=== PATIENT | female | born 1960 | race Caucasian/White ===

== ENCOUNTER 2021-05-22 08:00 | Outpatient (CLI) | payer BC | END 2021-05-22 23:59 | disposition home or self-care (01) | LOC: LAB.N 08:00 | PROVIDERS: ATTEND Physician Assistant Medical | DX: J02.9 Acute pharyngitis, unspecified (principal); Z20.822 Contact with and (suspected) exposure to COVID-19 ==

== ENCOUNTER 2021-07-12 08:00 | Outpatient (CLI) | payer BC ==
--- NOTE | 2021-07-12 16:03 | XRAY Report ---
PROCEDURE: Foot 2 View BILAT INDICATIONS: BILATERAL HEEL PX TECHNIQUE: 2 views of the foot were acquired. COMPARISON: None FINDINGS: Bones: No fractures or dislocations. No suspicious bony lesions. Soft tissues: No tibiotalar joint effusion. Achilles tendon appears normal. Linear radiodensity is noted overlying the second proximal phalanx of the right foot. IMPRESSION: No visualized acute fracture or dislocation. However, occult injury cannot be excluded. Recommend kory rt interval imaging follow-up in 7-10 days as clinically indicated for additional evaluation. Reviewed by: Tara David MD on 07/12/2021 4:02 PM [facility] Approved by: Tara David MD on 07/12/2021 4:02 PM [facility] Station ID: [id number]
== END 2021-07-12 23:59 | disposition home or self-care (01) ==
LOC: DI.N 08:00
PROVIDERS: ATTEND Family Medicine
DX: M79.672 Pain in left foot (principal); M79.671 Pain in right foot

== ENCOUNTER 2022-12-18 10:34 | Emergency (ER) | payer BC ==
--- NOTE | 2022-12-18 12:33 | ED Physician Documentation ---
History of Present Illness - Stated complaint Stated Complaint: THROAT AND CHEST DISCOMFORT - Chief complaint Chief Complaint: Cardiac - Additonal information Additional information: 62-year-old female presents emergency department for evaluation of substernal chest pain and chest pressure. Reports that she had the episode that lasted quite a while last night. Again had at this morning. She noted during these episodes of chest pain that she had an elevated blood pressure with a systolic greater than 200. She denies radiation of the pain to the arm or jaw. No nausea or diaphoresis. It is not pleuritic. Not exertional. She has history of hypertension for which she takes amlodipine. She is also followed by [facility] cardiology group for a longstanding history of mitral valve regurg. She has never had a stress test. She is a former smoker having quit in the mid . Patient has no unilateral leg swelling. No calf pain. Is not on any hormone replacement. No recent surgery. Did travel from [place] last week Patient incidentally reports that when she was in [place] last week she had a bee sting to her finger on the right hand. Unsure if this is related but this morning she noted that there was some mild swelling around the site where she was stung. No shortness of air. Patient is reliable historian Review of Systems Constitutional: denies: Fever, Chills Throat: reports: Reviewed and negative Cardiac: reports: Chest pain / pressure. denies: Palpitations, Pedal edema, Calf pain : reports: Reviewed and negative Skin: reports: Reviewed and negative PD PAST MEDICAL HISTORY - Allergies Allergies/Adverse Reactions: Allergies Allergy/AdvReac Type Severity Reaction Status Date / Time ciprofloxacin Allergy Unknown Verified 12/18/22 11:39 metoprolol Allergy Anxiety Verified 12/18/22 11:39 sulfamethoxazole Allergy Rash Verified 12/18/22 11:39 [From Bactrim] trimethoprim [From Bactrim] Allergy Rash Verified 12/18/22 11:39 PD ED PE NORMAL - General General: Alert and oriented X 3, No acute distress - HEENT HEENT: PERRL - Cardiac Cardiac: RRR - Respiratory Respiratory: No respiratory distress, Clear bilaterally - Abdomen Abdomen: Normal bowel sounds, Soft - Derm Derm: Normal color, Warm and dry - Extremities Extremities: No deformity, No tenderness to palpate, Normal ROM s pain - Neuro Neuro: Alert and oriented X 3, transmitter engineer in charge 2-12 intact Eye Opening: Spontaneous Motor: Obeys Commands Verbal: Oriented GCS Score: 15 Results - Vitals Vitals: Vital Signs - 24 hr 12/18/22 11:35 Temperature 36.6 C Heart Rate 65 Respiratory 15 Rate Blood Pressure 158/65 H O2 Saturation 100 Oxygen O2 Source Room air - EKG (time done) 1140 EKG releavant findings:: EKG personally interpreted by author of this note. Relevant findings are: Rate: Rate (enter#) (63) Rhythm: NSR [place]: Normal Intervals: Normal [place] QRS: Normal Ischemia: Normal ST segments Compare to prior EKG: Old EKG unavailable Computer interpretation: Agree with computer - Labs Labs: Laboratory Tests 12/18/22 12/18/22 12/18/22 12:29 12:29 12:29 WBC 5.7 RBC 4.51 Hgb 13.6 Hct 39.1 MCV 86.7 MCH 30.2 MCHC 34.8 RDW 15.0 Plt Count 231 MPV 9.2 Neut # (Auto) 4.5 Lymph # (Auto) 0.8 L [place] # (Auto) 0.3 Eos # (Auto) 0.1 Baso # (Auto) 0.0 Absolute Nucleated RBC 0.00 Nucleated RBC % 0.0 Sodium 139 Potassium 3.8 Chloride 105 Carbon Dioxide 27 Anion Gap 7.0 BUN 7 Creatinine 0.5 Estimated GFR (MDRD) 125 Glucose 118 H Calcium 9.3 Total Bilirubin 1.4 H AST 22 ALT 20 Alkaline Phosphatase 63 Troponin I High Sens 4.1 Total Protein 7.5 Albumin 4.5 Globulin 3.0 Albumin/Globulin Ratio 1.5 Lipase 75 H - Rads (name of study) cxr Relevant Findings:: EMP independent interpretation of test (No acute cardiopulmonary process.) PD Medical Decision Making - ED course Complexity details: reviewed results, re-evaluated patient, considered differential, d/w patient ED course: This is a very well-appearing 62-year-old female the presents emergency depart ment for evaluation of substernal chest pain chest pressure which she noted yesterday afternoon and again this morning. She has no chest pain or chest pressure at the time of this ER evaluation. Does have a longstanding history of hypertension for which she takes amlodipine. Patient is followed by [facility] cardiology for history of mitral valve regurgitation. Here in the ER my interpretation of her EKG shows no acute ischemic processes. No evidence of Q waves or remote infarction. High-sensitivity troponin is negative. Given the duration of symptoms for the last 24 hours though intermittent this likely does not represent an ACS. However with her age and history she would benefit from outpatient stress testing. I have advised her to follow closely with [facility] cardiology. By Wells criteria considered low risk for PE. My interpretation of her chest x-ray is that there is no findings to suggest a pneumonia, pneumothorax or pleural effusion. History and exam is not consistent with an aortic dissection or esophageal rupture. At this time the patient is stable for discharge home. We did discuss the usual emergent return precaution for worsening symptoms. Departure - Departure Disposition: Home, Self Care Clinical Impression: Chest discomfort, Elevated lipase Condition: Stable Record reviewed to determine appropriate education?: Yes Instructions: ED Chest Pain Atypical Unkn Cause Follow-Up: Karen Abraham MD [Primary Care Provider] - Comments: Ese as discussed at the bedside your labs today were all essentially normal. We do note a very mild elevated patel and your lipase as well as your bilirubin. However in the absence of severe belly pain or vomiting this is simply something to follow closely with your primary care provider. Here in the emergency department your chest x-ray was entirely unremarkable. Your EKG was also extremely normal for age. Your labs were otherwise normal and your troponin was not elevated. However with a history of hypertension as well as your age it is important you discuss this ED visit very closely with your primary care provider/cardiology group. You would benefit from an outpatient stress test for further evaluation of the chest discomfort to ensure it is noncardiac. At any point you have worsening symptoms, have severe shortness of air, develop any fainting episodes or worsening chest pain that radiates to jaw arms or is accompanied with nausea then please return immediately to the ER for repeat evaluation.
[2022-12-18 12:35] LABS: BASOPHILS % (AUTO) 0.5 %; EOSINOPHILS # (AUTO) 0.1 10^3/uL (0.0-0.7); EOSINOPHILS % (AUTO) 1.2 %; HCT - HEMATOCRIT 39.1 % (37.0-47.0); HGB - HEMOGLOBIN 13.6 g/dL (12.0-16.0); LYMPHOCYTES # (AUTO) 0.8 10^3/uL (1.5-3.5); LYMPHOCYTES % (AUTO) 14.5 %; MEAN CORPUSCULAR HEMOGLOBIN 30.2 pg (27.0-31.0); MEAN CORPUSCULAR HGB CONC 34.8 g/dL (32.0-36.0); MEAN CORPUSCULAR VOLUME 86.7 fL (81.0-99.0); MEAN PLATELET VOLUME 9.2 fL (7.9-10.8); MONOCYTES # (AUTO) 0.3 10^3/uL (0.0-1.0); MONOCYTES % (AUTO) 4.4 %; NEUTROPHILS # (AUTO) 4.5 10^3/uL (1.5-6.6); NEUTROPHILS % (AUTO) 79.2 %; PLT - PLATELET COUNT 231 10^3/uL (130-450); RED BLOOD COUNT 4.51 10^6/uL (4.20-5.40); WHITE BLOOD COUNT 5.7 x10^3/uL (4.8-10.8)
--- NOTE | 2022-12-18 12:52 | XRAY Report ---
PROCEDURE: Chest 1 View X-Ray INDICATIONS: Chest pain TECHNIQUE: One view of the chest was acquired. COMPARISON: None. FINDINGS: Surgical changes and devices: None. Lungs and pleura: No pleural effusions or pneumothorax. Lungs are clear. Mediastinum: Mediastinal contours appear normal. Heart size is normal. Bones and chest wall: No suspicious bony lesions. Overlying soft tissues appear unremarkable. IMPRESSION: No acute cardiopulmonary abnormality. Reviewed by: Marco Braden on 12/18/2022 12:51 PM PDT Approved by: Marco Braden on 12/18/2022 12:51 PM PDT Station ID: [id number]
[2022-12-18 12:57] LABS: ALBUMIN 4.5 g/dL (3.2-5.5); ALBUMIN/GLOBULIN RATIO 1.5 (1.0-2.2); BILIRUBIN,TOTAL 1.4 mg/dL (0.2-1.0); CALCIUM 9.3 mg/dL (8.5-10.3); CREATININE 0.5 mg/dL (0.4-1.0); POTASSIUM 3.8 mmol/L (3.5-5.0); TOTAL PROTEIN 7.5 g/dL (6.7-8.2)
[2022-12-18 13:14] VITALS: BP 164/73
== END 2022-12-18 13:13 | disposition home or self-care (01) ==
LOC: ED 10:34
DX: R07.89 Other chest pain (principal); E80.7 Disorder of bilirubin metabolism, unspecified; R74.8 Abnormal levels of other serum enzymes; I10 Essential (primary) hypertension; Z87.891 Personal history of nicotine dependence
CPT/HCPCS: 36415; 80053; 83690; 84484; 85025; 93005; 99284

== ENCOUNTER 2023-01-14 06:11 | Emergency (ER) | payer BC ==
[2023-01-14 06:29] VITALS: BP 151/83
--- NOTE | 2023-01-14 07:55 | ED Physician Documentation ---
PD HPI HEAD INJURY - Stated complaint Stated Complaint: N/HEAD PX - Chief complaint Chief Complaint: Trauma Hd/Nk - History obtained from History obtained from: Patient, Family - History of Present Illness Mechanism of head injury: Blow Where head injury occurred: Other (hospital) Timing - onset: How many days ago (2) Location of injury: Left, Front Quality of pain: Pain Associated symptoms: Nausea / vomiting, Neck pain. No: LOC, AMS, Amnesia, Seizures, Ear drainage, Nasal drainage Symptoms improve with: Rest Symptoms worsen with: Palpation, Movement Contributing factors: No: Anticoagulated, Intoxicated Similar symptoms before: Has not had sx before Recently seen: Other - Additional information Additional information: 62-year-old female was getting an MRI of the breast done 2 days ago when she was in the restroom she sat her paperwork down on the top of the commode and when she went to rock picker her paperwork she stood up and hit her head on a cabinet. She did not have loss of consciousness. She had some pain to the left side of her upper forehead that is now radiating into the vertex of her head with a throbbing pain and nausea. She felt more nauseous this morning and has come to the emergency department for evaluation. She has not had vomiting she has not recently been ill. She has some chronic pain in her neck and she has chronic headache. Review of Systems Constitutional: denies: Fever Eyes: denies: Loss of vision, Decreased vision, Photophobia Ears: denies: Ear pain Nose: denies: Rhinorrhea / runny nose, Congestion Throat: denies: Sore throat Respiratory: denies: Cough GI: reports: Nausea. denies: Vomiting, Constipation, Diarrhea Neurologic: reports: Headache, Head injury. denies: Generalized weakness, Focal weakness, Numbness, Difficulty speaking, Near syncope, Syncope, Seizure, Confused, Altered mental status, LOC PD PAST MEDICAL HISTORY - Past Medical History Cardiovascular: Hypertension, Valve disorder Neuro: Migraines - Past Surgical History Past Surgical History: No - Allergies Allergies/Adverse Reactions: Allergies Allergy/AdvReac Type Severity Reaction Status Date / Time ciprofloxacin Allergy Unknown Verified 12/18/22 11:39 metoprolol Allergy Anxiety Verified 12/18/22 11:39 sulfamethoxazole Allergy Rash Verified 12/18/22 11:39 [From Bactrim] trimethoprim [From Bactrim] Allergy Rash Verified 12/18/22 11:39 - Social History Does the pt smoke?: No Smoking Status: Never smoker Does the pt drink ETOH?: No Does the pt have substance abuse?: No - POLST Patient has POLST: No PD ED PE NORMAL - Vitals Vital signs reviewed: Yes (hypertensive ) - General General: Alert and oriented X 3, No acute distress, Well developed/nourished - HEENT HEENT: PERRL, EOMI, Other (There is superficial abrasion/bruise to the hairline on the left forehead. No crepitance/step off. ) - Neck Neck: Supple, no meningeal sign, No bony TTP, Other (mild tenderness to the occiput at the insertion of the trapezius on the left. ) - Respiratory Respiratory: No respiratory distress - Derm Derm: Normal color, Warm and dry, No rash - Extremities Extremities: No deformity - Neuro Neuro: Alert and oriented X 3, match up person 2-12 intact, No motor deficit, No sensory deficit, Normal speech Eye Opening: Spontaneous Motor: Obeys Commands Verbal: Oriented GCS Score: 15 - Psych Psych: Normal mood, Normal affect Results - Vitals Vitals: Vital Signs - 24 hr 01/14/23 06:25 Temperature 36.2 C L Heart Rate 81 Respiratory 17 Rate Blood Pressure 151/83 H O2 Saturation 97 Oxygen O2 Source Room air - Rads (name of study) CT head Relevant Findings:: Prelim report reviewed (Impression: 1. No CT evidence of acute intracranial pathology.), EMP independent interpretation of test PD Medical Decision Making - ED course Complexity details: considered differential, d/w patient, d/w family ED course: 62-year-old female with a forehead contusion 2 days ago has increasing symptoms of pain and nausea. She has an unremarkable CT scan of the head. My interpretation of these findings are the patient likely has a concussion with localized soft tissue injury to the left forehead resulting in an increase in the patient's chronic headache and nausea. She does have Zofran available for use at home. I have discussed the findings with the patient and her and recommended she use her Zofran as needed and expect recovery within the next several days. Departure - Departure Disposition: 01 Home, Self Care Clinical Impression: Concussion Qualifiers: Encounter type: initial encounter Loss of consciousness presence/duration: without LOC Qualified Code(s): S06.0X0A - Concussion without loss of consciousness, initial encounter Condition: Stable Instructions: ED Concussion Follow-Up: Karen Abraham MD [Physician No Access] - Comments: Ese, today it looks like you have had a concussion and as we discussed the expectation is that your symptoms will improve over 1-5 days. The headache may last longer. Take the zofran as needed, reduce your activity to what is tolerated and expect daily improvement. The CT we did today was entirely normal.
--- NOTE | 2023-01-14 08:30 | CT Report ---
PROCEDURE: HEAD WO INDICATIONS: head injury 3 days ago, worsening headache TECHNIQUE: Noncontrast 4.5 mm thick angled axial sections acquired from the foramen magnum to the vertex. For r adiation dose reduction, the following was used: automated exposure control, adjustment of mA and/or kV according to patient size. COMPARISON: None. FINDINGS: Image quality: Excellent. CSF spaces: Basal cisterns are patent. No extra-axial fluid collections. Ventricles are normal in size and shape. Brain: No midline shift. No intracranial masses or hemorrhage. Whalen-white matter interface is norm al. Skull and face: Calvarium and visualized facial bones are intact, without suspicious lesions. Sinuses: Visualized sinuses and mastoids are clear. IMPRESSION: No acute intracranial abnormality. Findings above correspond with preliminary findings by [facility]. Reviewed by: Marco Braden on 01/14/2023 8:29 AM PDT Approved by: Marco Braden on 01/14/2023 8:29 AM PDT Station ID: [id number]
== END 2023-01-14 08:11 | disposition home or self-care (01) ==
LOC: ED 06:11
DX: S06.0X0A Concussion without loss of consciousness, initial encounter (principal); S00.83XA Contusion of other part of head, initial encounter; W22.03XA Walked into furniture, initial encounter; Y93.89 Activity, other specified; Y92.538 Other ambulatory health services establishments as the place of occurrence of the external cause
CPT/HCPCS: 99283; 99284

== ENCOUNTER 2024-01-30 23:56 | Emergency (ER) | payer BC ==
[2024-01-31 00:16] LABS: RAPID STREP SCREEN Negative (Negative)
--- NOTE | 2024-01-31 01:30 | ED Physician Documentation ---
PD HPI HEENT - Stated complaint Stated Complaint: SORE THROAT - Chief complaint Chief Complaint: Heent - History obtained from History obtained from: Patient - Additional information Additional information: HPI from patient. Patient complains of sore throat with odynophagia, chills and sweats. Symptoms began 2 to 3 days ago. She says she was evaluated in walk-in clinic on Monday (2 days ago), and was prescribed Augmentin. She says she had a strep test and COVID test at that time, the results of which were both negative per patient. Denies fever per se; she has been measuring her temperature at home and Tmax 99.5. PD PAST MEDICAL HISTORY - Past Medical History Cardiovascular: Hypertension, Valve disorder Neuro: Migraines - Past Surgical History Past Surgical History: No /NIGHT SHIFT: Endometrial ablation HEENT: Other - Present Medications Home Medications: Ambulatory Orders Medication Instructions Recorded Confirmed Cetirizine [ZyrTEC] 10 mg PO BID #15 tablet 11/06/23 Meclizine HCl [Motion Sickness] 25 mg PO Q6H PRN #30 tablet 11/06/23 Ondansetron Odt [Zofran] 4 mg TL Q6H PRN #10 tablet 11/06/23 Lidocaine Viscous 2% [Xylocaine 5 ml MM Q4H PRN #100 ml 01/31/24 Viscous 2%] - Allergies Allergies/Adverse Reactions: Allergies Allergy/AdvReac Type Severity Reaction Status Date / Time ciprofloxacin Allergy Unknown Verified 01/31/24 00:05 metoprolol Allergy Anxiety Verified 01/31/24 00:05 sulfamethoxazole Allergy Rash Verified 01/31/24 00:05 [From Bactrim] trimethoprim [From Bactrim] Allergy Rash Verified 01/31/24 00:05 - Social History Does the pt smoke?: No Smoking Status: Never smoker Does the pt drink ETOH?: No Does the pt have substance abuse?: No - Immunizations Immunizations are current?: No - POLST Patient has POLST: No PD ED PE NORMAL - Vitals Vital signs reviewed: Yes - General General: Alert and oriented X 3, No acute distress, Well developed/nourished - Neck Neck: Supple, no meningeal sign - Respiratory Respiratory: No respiratory distress, Clear bilaterally PD ED PE EXPANDED - HEENT HEENT: Pharyngeal erythema, Other (mild, symmetric posterior oropharngeal edema). No: Tonsillar exudate Results - Vitals Vitals: Vital Signs - 24 hr 01/31/24 01/31/24 00:03 02:15 Temperature 36.3 C L Heart Rate 77 72 Respiratory 18 16 Rate Blood Pressure 154/77 H 144/72 H O2 Saturation 99 98 Oxygen O2 Source Room air - Labs Labs: Laboratory Tests 01/31/24 01/31/24 00:06 00:28 Nasal Adenovirus (PCR) NOT DETECTED Nasal B. parapertussis DNA (PCR) NOT DETECTED Nasal Coronavir 229E PCR NOT DETECTED Nasal Coronavir HKU1 PCR NOT DETECTED Nasal Coronavir NL63 PCR NOT DETECTED Nasal Coronavir OC43 PCR NOT DETECTED Nasal Enterovir/Rhinovir PCR NOT DETECTED Nasal Influenza B PCR NOT DETECTED Nasal Influenza A PCR NOT DETECTED Nasal Parainfluen 1 PCR NOT DETECTED Nasal Parainfluen 2 PCR NOT DETECTED Nasal Parainfluen 3 PCR DETECTED A Nasal Parainfluen 4 PCR NOT DETECTED Nasal RSV (PCR) NOT DETECTED Nasal B.pertussis DNA PCR NOT DETECTED Nasal C.pneumoniae (PCR) NOT DETECTED Ru Human Metapneumo PCR NOT DETECTED Nasal M.pneumoniae (PCR) NOT DETECTED Nasal SARS-CoV-2 (PCR) NOT DETECTED Group A Strep Rapid Negative PD Medical Decision Making - ED course Complexity details: reviewed results, re-evaluated patient, considered differential, d/w patient ED course: Rapid strep negative. Respiratory PCR panel is positive for parainfluenza 3. Results discussed with patient. She is given 10 mg p.o. Decadron is a 1-time dose for pharyngitis. I have also provided prescription for viscous Xylocaine 5 mL p.o. every 4 hours as needed mouth/throat pain. I advised her to not eat or drink after using the Xylocaine until she feels complete return of sensation of her mouth or throat (risk of aspiration if she tries to eat/drink while the throat is numb). Departure - Departure Disposition: 01 Home, Self Care Clinical Impression: Pharyngitis Condition: Good Instructions: ED Pharyngitis Viral Prescriptions: Lidocaine Viscous 2% [Xylocaine Viscous 2%] 5 ml MM Q4H PRN #100 ml PRN Reason: Mouth Sore Pain Comments: You tested positive for parainfluenza 3. This is a relatively common virus that typically causes upper respiratory symptoms such as the ones you are experiencing. It rarely causes dangerous medical problems (such as pneumonia), has no specific treatment, and should resolve within 5-7 days. It is contagious and you should take appropriate precautions. Your strep test was negative; the lab will next perform a culture on the throat swab sample. The culture typically takes 1 or 2 days to result but is significantly more accurate than the rapid test. If your throat culture is positive for strep, you will receive a phone call from this emergency department and an antibiotic can be called in to your pharmacy. If the throat culture is negative, you will not receive a phone call. If the throat culture is positive for strep, you would only need a change in antibiotic if the symptoms are not improving by the time you receive a phone call with the Augmentin that you are already on. In other words, if you receive a phone call from this emergency department dictating the throat culture is positive for strep but your symptoms are improving by then, simply continue with the Augmentin rather than start a new/different antibiotic. If your symptoms are the same or worse by the time you receive a phone call for a positive throat culture result, you should have a different antibiotic (than the augmentin) called into your pharmacy. I have electronically submitted a prescription for Xylocaine to the [facility] pharmacy in [place]. This is a numbing agent for the mucous membranes of the mouth. Follow label instructions. Most patients find it provides significant relief of the pain associated with pharyngitis. However, as we discussed, you must not eat or drink anything until the effects have worn off, as a numb throat can interfere with the swallow reflex and result in aspiration of liquids and/or solids (in other words, what you eat and/or drink might "go down the wrong pipe" and end up in your lungs). As long as your throat is not numb, this is not a realistic concern. Discharge Date/Time: 01/31/24 02:16
[2024-01-31 01:40] LABS: B. PARAPERTUSSIS- RESP PCR PAN NOT DETECTED; B. PERTUSSIS- RESP PCR PANEL NOT DETECTED; C. PNEUMONIAE- RESP PCR PANEL NOT DETECTED; CORONAVIRUS 229E-RESP PCR NOT DETECTED; CORONAVIRUS HKU1-RESP PCR NOT DETECTED; CORONAVIRUS NL63-RESP PCR NOT DETECTED; CORONAVIRUS OC43-RESP PCR NOT DETECTED; HUMAN METAPNEUMOVIRUS NOT DETECTED; INFLUENZA A- RESP PCR PANEL NOT DETECTED; INFLUENZA B - RESP PCR PANEL NOT DETECTED; M. PNEUMONIAE- RESP PCR PANEL NOT DETECTED; PARAINFLUENZA VIRUS 1 NOT DETECTED; PARAINFLUENZA VIRUS 2 NOT DETECTED; PARAINFLUENZA VIRUS 3 DETECTED; PARAINFLUENZA VIRUS 4 NOT DETECTED; RHINOVIRUS/ENTEROVIRUS NOT DETECTED; RSV- RESP PCR PANEL NOT DETECTED; SARS-CoV-2 -RESP PCR PANEL NOT DETECTED
[2024-01-31] MEDS: DEXAMETHASONE 10 MG/ML VIAL PO STA (02:12)
[2024-01-31] MEDS: CHERRY SYRUP 10 ML UDC PO ONE (02:12)
[2024-01-31] MEDS: LIDOCAINE VISCOUS 2% 15 ML UDC MM STA (02:12)
[2024-01-31 02:24] VITALS: BP 144/72; O2SAT 98
== END 2024-01-31 02:16 | disposition home or self-care (01) ==
LOC: ED 23:56
DX: B34.8 Other viral infections of unspecified site (principal); J02.9 Acute pharyngitis, unspecified
CPT/HCPCS: 87070; 87430; 87633; 99283; 99284; A9270

== ENCOUNTER 2024-02-28 09:09 | Emergency (ER) | payer BC ==
--- NOTE | 2024-02-28 09:31 | ED Physician Documentation ---
PD HPI URI - Stated complaint Stated Complaint: WEAKNESS, FEVER, RAYMOND, GI - Chief complaint Chief Complaint: General - History of Present Illness Timing - onset: How many days ago (4-5) Timing duration: Days (4-5) Timing details: Abrupt onset, Still present Associated symptoms: Fever, Chills, Nasal congestion, Dry cough, NVD (had had nausea and less appetite. But started with repetitive watery diarrhea overnight and into this morning.) Contributing factors: Sick contact (spouse with COVID URI symptoms as well.). No: Immunocompromised Similar symptoms before: Has not had sx before Review of Systems Constitutional: reports: Fever, Chills, Myalgias Nose: reports: Congestion. denies: Rhinorrhea / runny nose Throat: denies: Sore throat Cardiac: denies: Chest pain / pressure Respiratory: reports: Dyspnea, Cough GI: reports: Nausea, Diarrhea. denies: Bloody / black stool : denies: Dysuria Neurologic: reports: Generalized weakness. 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 HEENT: Other - Present Medications Home Medications: Ambulatory Orders Medication Instructions Recorded Confirmed amLODIPine [Norvasc] 5 mg PO ONCE 02/28/24 02/28/24 - Allergies Allergies/Adverse Reactions: Allergies Allergy/AdvReac Type Severity Reaction Status Date / Time ciprofloxacin Allergy Unknown Verified 02/28/24 09:27 metoprolol Allergy Anxiety Verified 02/28/24 09:27 sulfamethoxazole Allergy Rash Verified 02/28/24 09:27 [From Bactrim] trimethoprim [From Bactrim] Allergy Rash Verified 02/28/24 09:27 - Social History Does the pt smoke?: No Smoking Status: Former smoker Does the pt drink ETOH?: No Does the pt have substance abuse?: No - Immunizations Immunizations are current?: No - POLST Patient has POLST: No PD ED PE NORMAL - Vitals Vital signs reviewed: Yes - General General: Alert and oriented X 3, No acute distress, Well developed/nourished - Neck Neck: Supple, no meningeal sign, No adenopathy - Cardiac Cardiac: RRR, No murmur - Respiratory Respiratory: No respiratory distress, Clear bilaterally - Abdomen Abdomen: Normal bowel sounds, Soft, Non tender, Non distended - Derm Derm: Normal color, Warm and dry - Neuro Neuro: Alert and oriented X 3, No motor deficit, Normal speech Results - Vitals Vitals: Oxygen O2 Source Room air - Labs Labs: Laboratory Tests 02/28/24 10:13 Sodium 136 Potassium 4.5 Chloride 105 Carbon Dioxide 24 Anion Gap 7.0 BUN 7 Creatinine 0.6 Estimated GFR (MDRD) 101 Glucose 106 H Calcium 9.2 Magnesium 1.9 Total Bilirubin 1.7 H AST 50 H ALT 29 Alkaline Phosphatase 67 Total Protein 7.5 Albumin 4.4 Globulin 3.1 Albumin/Globulin Ratio 1.4 Lipase 19 PD Medical Decision Making - ED course Complexity details: reviewed results, re-evaluated patient (Feeling improved with fluids, Zofran and Toradol. ), considered differential (patient with COVID home testing, poor intake due to nausea and now with repeititve watery dairrhea. Feeling lightheaded. Can give IV fluids and meds to help symptoms. given the degree of diarrhea, can get stool sample for triggered diarrheas such as c diff/ stool culture. ), d/w patient Departure - Departure Disposition: Home, Self Care Clinical Impression: COVID-19, Diarrhea, Dehydration Condition: Stable Record reviewed to determine appropriate education?: Yes Instructions: ED Diarrhea Viral Follow-Up: Karen Abraham MD [Primary Care Provider] - Comments: Your basic electrolytes are looking okay despite the volume loss from the diarrhea. I presume your diarrhea is related to intestinal inflammation from the COVID, which is a multisystem inflammatory disease. However diarrhea is usually not as prominent as you are having. See how you do over the next day or 2 and it is okay to use Imodium for the diarrhea and Zofran/ondansetron for nausea. Frequent fluids and stay hydrated and try to have some simple bland foods, in particular starches/carbohydrates such as rice Posta's and breads. They tend to help with the diarrhea the most. If you persist with the diarrhea more than couple more days, you could consider collecting a sample of it and bring it to your primary care to have him tested for a secondary bacterial infection such as C. difficile and a stool culture. If it clears up then no particular treatment per se. Your symptoms have been long enough I would not see any benefit to Paxlovid/antivirals and the side effects of them are mostly upset stomach and cramps and diarrhea so we will just augment your symptoms you are to having. Tylenol every 4-6 hours if needed for cramps fevers or pains. Return to the ER if needed. Forms: PCP List Discharge Date/Time: 02/28/24 13:19
[2024-02-28] MEDS: SODIUM CHLORIDE 0.9% 2,000 ML IV STA (10:27)
[2024-02-28] MEDS: KETOROLAC 15 MG/ML VIAL IVP STA (10:27)
[2024-02-28] MEDS: DIPHENOX/ATROPINE 2.5/0.025 MG TABLET PO STA (10:28)
[2024-02-28] MEDS: ONDANSETRON 4 MG/2 ML VIAL IVP STA (10:28)
[2024-02-28] MEDS: SODIUM CHLORIDE 0.9% 1,000 ML IV STA (10:51)
[2024-02-28 10:52] LABS: ALBUMIN 4.4 g/dL (3.2-5.5); ALBUMIN/GLOBULIN RATIO 1.4 (1.0-2.2); BILIRUBIN,TOTAL 1.7 mg/dL (0.2-1.0); CALCIUM 9.2 mg/dL (8.5-10.3); CREATININE 0.6 mg/dL (0.6-1.3); MAGNESIUM 1.9 mg/dL (1.7-2.3); POTASSIUM 4.5 mmol/L (3.5-4.5); TOTAL PROTEIN 7.5 g/dL (6.4-8.9)
[2024-02-28 12:25] VITALS: BP 132/62; O2SAT 99
== END 2024-02-28 13:19 | disposition home or self-care (01) ==
LOC: ED 09:09
DX: U07.1 COVID-19 (principal); E86.0 Dehydration; Z87.891 Personal history of nicotine dependence
CPT/HCPCS: 36415; 80053; 83690; 83735; 96361; 96374; 96375; 99283; 99284; A9270

== ENCOUNTER 2024-05-20 06:24 | Emergency (ER) | payer BC ==
[2024-05-20 06:40] VITALS: O2SAT 100
[2024-05-20 07:00] LABS: ALBUMIN 4.6 g/dL (3.2-5.5); ALBUMIN/GLOBULIN RATIO 1.8 (1.0-2.2); BILIRUBIN,TOTAL 1.3 mg/dL (0.2-1.0); CALCIUM 9.6 mg/dL (8.5-10.3); CREATININE 0.6 mg/dL (0.6-1.3); POTASSIUM 3.4 mmol/L (3.5-4.5); TOTAL PROTEIN 7.1 g/dL (6.4-8.9)
[2024-05-20 07:02] LABS: BASOPHILS % (AUTO) 0.6 %; EOSINOPHILS # (AUTO) 0.1 10^3/uL (0.0-0.7); EOSINOPHILS % (AUTO) 1.3 %; HGB - HEMOGLOBIN 13.4 g/dL (12.0-16.0); LYMPHOCYTES # (AUTO) 1.1 10^3/uL (1.5-3.5); LYMPHOCYTES % (AUTO) 21.1 %; MEAN CORPUSCULAR HEMOGLOBIN 29.4 pg (27.0-31.0); MEAN CORPUSCULAR HGB CONC 34.4 g/dL (32.0-36.0); MEAN CORPUSCULAR VOLUME 85.5 fL (81.0-99.0); MEAN PLATELET VOLUME 9.3 fL (7.9-10.8); MONOCYTES # (AUTO) 0.4 10^3/uL (0.0-1.0); MONOCYTES % (AUTO) 6.6 %; NEUTROPHILS # (AUTO) 3.7 10^3/uL (1.5-6.6); NEUTROPHILS % (AUTO) 69.3 %; PLT - PLATELET COUNT 244 10^3/uL (130-450); RED BLOOD COUNT 4.56 10^6/uL (4.20-5.40); RED CELL DISTRIBUTION WIDTH 15.3 % (12.0-15.0); WHITE BLOOD COUNT 5.3 x10^3/uL (4.8-10.8)
--- NOTE | 2024-05-20 07:07 | ED Physician Documentation ---
PD HPI CHEST PAIN - Stated complaint Stated Complaint: CHEST PX - Chief complaint Chief Complaint: Cardiac - History obtained from History obtained from: Patient - Additional information Additional information: 63-year-old woman with history of hypertension mitral valve prolapse presents with a weeks worth of chest pain. It is far lateral in the left chest wall and radiates up towards the shoulder and neck. It is constant. Associate with mild shortness of breath. She has had similar symptoms many times with negative workups, but this is lasting longer. No pedal edema or calf pain, or recent travel. 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 HEENT: Other - Present Medications Home Medications: Ambulatory Orders Medication Instructions Recorded Confirmed amLODIPine [Norvasc] 5 mg PO DAILY 02/28/24 05/20/24 Doxycycline [Vibramycin] 100 mg PO BID #14 tablet 05/20/24 - Allergies Allergies/Adverse Reactions: Allergies Allergy/AdvReac Type Severity Reaction Status Date / Time ciprofloxacin Allergy Unknown Verified 05/20/24 06:35 metoprolol Allergy Anxiety Verified 05/20/24 06:35 sulfamethoxazole Allergy Rash Verified 05/20/24 06:35 [From Bactrim] trimethoprim [From Bactrim] Allergy Rash Verified 05/20/24 06:35 - Social History Does the pt smoke?: No Smoking Status: Never smoker Does the pt drink ETOH?: No Does the pt have substance abuse?: No - Immunizations Immunizations are current?: No - POLST Patient has POLST: No PD ED PE NORMAL - Vitals Vital signs reviewed: Yes - General General: Alert and oriented X 3, No acute distress - HEENT HEENT: PERRL, EOMI - Neck Neck: Supple, no meningeal sign, No bony TTP - Cardiac Cardiac: RRR, No murmur - Respiratory Respiratory: No respiratory distress, Clear bilaterally - Abdomen Abdomen: Non tender - Extremities Extremities: No edema, No calf tenderness / cord - Neuro Neuro: Alert and oriented X 3 Results - Vitals Vitals: Vital Signs - 24 hr 05/20/24 06:25 Temperature 36.2 C L Heart Rate 74 Respiratory 16 Rate Blood Pressure 170/88 H O2 Saturation 100 Oxygen O2 Source Room air - EKG (time done) 0633 EKG releavant findings:: EKG personally interpreted by author of this note. Relevant findings are: Rate: Rate (enter#) (60) Rhythm: NSR Flora: Normal Intervals: Normal AK QRS: Normal Ischemia: Normal ST segments - Labs Labs: Laboratory Tests 05/20/24 05/20/24 05/20/24 06:30 06:30 06:30 WBC 5.3 RBC 4.56 Hgb 13.4 Hct 39.0 MCV 85.5 MCH 29.4 MCHC 34.4 RDW 15.3 H Plt Count 244 MPV 9.3 Neut # (Auto) 3.7 Lymph # (Auto) 1.1 L Newton # (Auto) 0.4 Eos # (Auto) 0.1 Baso # (Auto) 0.0 Absolute Nucleated RBC 0.00 Nucleated RBC % 0.0 Sodium 139 Potassium 3.4 L Chloride 103 Carbon Dioxide 30 Anion Gap 6.0 BUN 10 Creatinine 0.6 Estimated GFR (MDRD) 101 Glucose 101 Calcium 9.6 Total Bilirubin 1.3 H AST 16 ALT 19 Alkaline Phosphatase 69 Troponin I High Sens 6.0 Total Protein 7.1 Albumin 4.6 Globulin 2.5 Albumin/Globulin Ratio 1.8 Lipase 18 - Rads (name of study) Hazy left basilar infiltrate likely superposition of soft tissue Relevant Findings:: Final report received, EMP independent interpretation of test PD Medical Decision Making - ED course ED course: Nothing in the history or physical to suggest thromboembolic disease. CBC, CMP, and troponin normal/negative. Heart score 1. Radiologist called a hazy left basilar infiltrate, this is not consistent With her symptomatology, i.e. she has no cough, fever. I discussed this with the patient and we discussed options including confirmatory CT scanning versus a watch and wait prescription for antibiotics and she chooses the latter. Departure - Departure Disposition: Home, Self Care Clinical Impression: Chest pain Condition: Good Record reviewed to determine appropriate education?: Yes Instructions: ED Chest Pain NonCardiac Prescriptions: Doxycycline [Vibramycin] 100 mg PO BID #14 tablet Comments: As discussed, all testing was normal with the exception of the radiologist's opinion of possible pneumonia versus superposition of tissues at the left lung base which could be artifact versus pneumonia. You do not really have any symptomatology that would be consistent with pneumonia i.e., no cough, fever. That said if you were to develop these you can fill the prescription for doxycycline. If you do not develop the symptoms, do not fill the prescription. Call your doctor to arrange a follow-up appointment, make the next available appointment. In the interim, return anytime if worse or if new symptoms develop. Forms: PCP List
[2024-05-20 07:35] VITALS: BP 160/70
--- NOTE | 2024-05-20 15:47 | XRAY Report ---
PROCEDURE: Chest 1V INDICATIONS: chest pain TECHNIQUE: One view of the chest was acquired. COMPARISON: 12/18/2022. FINDINGS: Surgical changes and devices: None. Lungs and pleura: No pleural effusions or pneumothorax. Lungs are clear. Mediastinum: Mediastinal contours appear normal. Heart size is normal. Bones and chest wall: No suspicious bony lesions. Overlying soft tissues appear unremarkable. IMPRESSION: No gross infiltrates. Findings are concordant with preliminary interpretation provided by [facility]. Reviewed by: Lenny Justice MD on 05/20/2024 3:46 PM PDT Approved by: Lenny Justice MD on 05/20/2024 3:46 PM PDT Station ID: [id number]
== END 2024-05-20 07:34 | disposition home or self-care (01) ==
LOC: ED 06:24
DX: R07.9 Chest pain, unspecified (principal); R06.02 Shortness of breath; I10 Essential (primary) hypertension
CPT/HCPCS: 36415; 80053; 83690; 84484; 85025; 93005; 99284